=== PATIENT | female | born 2000 | race American Indian/Alaskan Native ===

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

== ENCOUNTER 2020-10-09 22:07 | Emergency (ER) | payer SELFPAY ==
[2020-10-10 00:54] VITALS: BP 121/68
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
== END 2020-10-10 02:39 | disposition home or self-care (01) ==
LOC: ED 22:07
DX: S09.90XA Unspecified injury of head, initial encounter (principal); Z79.899 Other long term (current) drug therapy; Z91.018 Allergy to other foods; Y04.8XXA Assault by other bodily force, initial encounter; Y93.89 Activity, other specified; Y92.89 Other specified places as the place of occurrence of the external cause; Y99.8 Other external cause status
CPT/HCPCS: 99282